=== PATIENT | female | born 2000 | race Caucasian/White ===

== ENCOUNTER 2020-06-12 05:09 | Emergency (ER) | payer BC ==
[~2020-06-12] VITALS: Ht 157.5 cm; Wt 52.3 kg
[2020-06-12 05:45] LABS: STREP SCREEN NEGATIVE
[2020-06-12] MEDS ORDERED: CLEOCIN HCL300 MG PO (05:48)
[2020-06-12 05:54] VITALS: BP 120/66; PULSE 82; TEMP 97.8
== END 2020-06-12 06:06 | disposition home or self-care (01) ==
LOC: COL.ER 05:09
PROVIDERS: Emergency Medicine
DX: J03.90 Acute tonsillitis, unspecified (principal); Z88.1 Allergy status to other antibiotic agents
CPT/HCPCS: J8540